=== PATIENT | male | born 1980 | race Caucasian/White ===

== ENCOUNTER 2020-03-29 14:22 | Outpatient (REF) | payer OTHER, SELFPAY | END 2020-03-29 14:23 | disposition home or self-care (01) | LOC: HO.LAB 14:22 | PROVIDERS: Visit Provider Internal Medicine | DX: Z20.822 Contact with and (suspected) exposure to COVID-19 (principal) | CPT/HCPCS: 36415; C9803; U0003 ==

== ENCOUNTER 2021-12-22 11:36 | Emergency (ER) | payer OTHER, SELFPAY ==
--- NOTE | ~2021-12-22 | XR_ITS ---
EXAMINATION: XR CHEST CLINICAL INFORMATION: Foreign body sensation COMPARISON: None TECHNIQUE: 2 views of the chest were obtained. FINDINGS: No significant abnormality is noted involving the heart, lungs, mediastinum, bony thorax or soft tissues. XR/XR chest 2V IMPRESSION: Unremarkable examination. No foreign body detected
[2021-12-22 12:50] VITALS: BP 161/86; PULSE 98; RESP 16; TEMP 36.6; O2SAT 99; BMI 23.7
[2021-12-22 15:57] VITALS: BP 143/91; PULSE 79; RESP 16; TEMP 37.3; O2SAT 97
[2021-12-22] MEDS: Magnesium Hydrox/Alum Hydrox 30 ML ORAL.SUSP PO (19:25)
[2021-12-22] MEDS: Famotidine 20 MG TABLET PO (19:25)
--- NOTE | 2021-12-22 19:50 | ED_ITS ---
HPI - General Adult General Chief complaint: General Medical Stated complaint: Stomach Pain Time Seen by Provider: 12/22/21 18:42 Source: patient Mode of arrival: ambulatory History of Present Illness HPI narrative: 41-year-old male with past medical history of gastritis presenting to the ED complaining feeling like he swallowed something the wrong way/foreign body sensation in epigastrium 4 days ago s/p eating quickly at work. Admits symptoms have resolved, feels better at present. Took OTC medications without relief. Denies chest pain, shortness of breath, nausea, vomiting, recent travel, fever Onset (ago): day(s) Related Data Previous Rx's Medication Instructions Recorded aluminum-mag hydroxide-simethicone 5 ml PO 5XD PRN dyspepsia #30 mL 12/22/21 200 mg-200 mg-20 mg/5 mL oral susp (Maalox Advanced) famotidine 20 mg tablet (Pepcid) 20 mg PO DAILY #14 tabs 12/22/21 Allergies Allergy/AdvReac Type Severity Reaction Status Date / Time No Known Allergies Allergy Verified 12/22/21 12:54 Review of Systems Review of Systems: Constitutional: No Fever, No Chills, No Fatigue, No Malaise ENT/Mouth: No Ear Pain, No Nasal Congestion, No sore throat, No Rhinorrhea, No Swallowing Difficulty Eyes: No Eye Pain, No Swelling, No Redness,No Vision Changes Cardiovascular: No Chest Pain, No SOB, No Edema, No Palpitations Respiratory: No Cough, No Sputum, No Dyspnea Gastrointestinal: No Nausea, No Vomiting, No Diarrhea, No Constipation, + Abdominal pain Genitourinary: No Dysuria, No Hematuria, No Urinary Incontinence/retention Musculoskeletal: No joint pain, No Myalgias, No Joint Swelling Skin: No Skin Lesions, No rash Neuro: No Weakness, No Loss of Consciousness, No Dizziness, No Headache Yes all other systems are reviewed and are negative Constitutional: Constitutional: Reports as per [facility] Past Medical History Attestation statement: The following information was validated with the patient. Social History Social History Advance Directives: No Advance Directives Information Provided: No Physical Exam ED Vital Signs: Vital Signs - 24 hr 12/22/21 12:50 12/22/21 15:57 Temperature 97.9 F 99.2 F Pulse Rate 98 79 Respiratory Rate 16 16 Blood Pressure 161/86 H 143/91 H Pulse Oximetry 99 97 Oxygen Delivery Method Room Air Room Air BMI result Body Mass Index 23.7 Const General: cooperative, healthy appearing and no acute distress Orientation/consciousness: patient oriented x3 Limitations: no limitations HENMT Head: Yes normal to inspection and Yes atraumatic Ears: hearing grossly normal bilaterally General nose exam: Normal external nose present Face and sinus: Yes normal facial exam Throat: Yes posterior oropharynx normal, Yes tonsils normal, Yes uvula midline, No abnormal tonsil, No peritonsillar mass and No uvular edema Eyes General: appearance normal, both eyes and all related structures EOM: EOMs intact bilaterally Neck Neck: Yes normal visual inspection and Yes no meningeal signs Resp Effort & Inspection: normal respiratory effort and no respiratory distress Auscultation: clear to auscultation bilaterally, no crackles, no rales, no rhonchi and no wheezes Cardio Rate: regular rate Heart sounds: S1 normal heart sound present and S2 normal heart sound present GI Inspection: Yes normal to inspection Palpation (GI): Soft to palpation, nontender, no guarding and not rigid General: Yes no CVA tenderness Back/Spine/Pelvis Back: no CVA tenderness Skin Rashes: no rashes Wounds: no wounds Neuro General: patient oriented x3, tone normal and no meningeal signs Gait exam (Neuro): Normal gait present Extrem General: Yes normal to inspection Course Course Course Narrative: XR chest 2V IMPRESSION: Unremarkable examination. No foreign body detected -COVID-19 and influenza negative -patient tolerated p.o. in the ED without difficulty Results discussed with patient including worrisome signs and symptoms and strict return precautions, and when to return to the emergency department. They verbalized understanding and feel safe for discharge at this time. Medical Decision Making MDM Narrative Medical decision making narrative: 41-year-old male with past medical history of gastritis presenting to the ED complaining feeling like he swallowed something the wrong way/foreign body sensation in epigastrium 4 days ago s/p eating quickly at work. On exam vital signs stable, NAD, nontoxic appearing, lungs CTA, abdomen soft/nontender. Concern for ?Food bolus which self resolved vs gastritis vs GERD. R/o aspiration. Plan: CXR, p.o. medications Medical Records Medical records reviewed: Yes I reviewed the patient's medical records. Lab Data Lab results reviewed: Yes I reviewed the patient's lab results. Labs: Lab Results 12/22/21 12/22/21 Range/Units 19:45 19:45 COVID-19 ([facility]E) Negative (Negative) COVID-19 Clin Com See Note Influenza Type A ([facility]REE) Negative (Negative) Influenza Type B ([facility]REE) Negative (Negative) Influenza A & B Note See Note Discharge Plan Discharge Clinical Impression: Sensation of foreign body in esophagus Patient Disposition: Home, Self-Care Additional Instructions: Your chest x-ray is unremarkable. Avoid spicy foods, sweets, caffeine, chocolate, fatty/greasy foods Maalox and Pepcid will help with acid reduction follow up with your doctor and GI if symptoms persist or worsen, you are unable to eat or drink return to the ED Young radiograf?a de t?rax es normal. Evite los alimentos picantes, los dulces, la cafe?na, el chocolate y los alimentos grasos/grasosos. Maalox y Pepcid ayudar?n con la reducci?n de ?cido seguimiento con young m?dico y GI si los s?ntomas persisten o empeoran, no puede comer ni beber volver al servicio de urgencias Prescriptions: New famotidine [Pepcid] 20 mg tablet 20 mg PO DAILY Qty: 14 0RF alum-mag hydroxide-simeth [Maalox Advanced] 200-200-20 mg/5 mL suspension 5 ml PO 5XD PRN (Reason: dyspepsia) Qty: 30 0RF Rx Instructions: administer between meals and at bedtime Referrals: [facility] [place] [facility] [Provider Group] Stand Alone Forms: Work/School Release
[2021-12-22 20:08] LABS: COVID-19 Test Negative (Negative); IDNOW Serial# 16C4AD1C; Influenza A Negative (Negative); Influenza B2 Negative (Negative)
== END 2021-12-22 20:57 | disposition home or self-care (01) ==
PROVIDERS: Physician Assistant; Emergency Provider Emergency Medicine
DX: R10.9 Unspecified abdominal pain (principal); R06.02 Shortness of breath; R09.89 Other specified symptoms and signs involving the circulatory and respiratory systems; Z20.822 Contact with and (suspected) exposure to COVID-19; Z79.899 Other long term (current) drug therapy
CPT/HCPCS: 71046; 87502; 87635; 99282; 99283

== ENCOUNTER 2023-08-01 17:01 | Emergency (ER) | payer SELFPAY ==
[2023-08-01 17:11] VITALS: BP 164/99; PULSE 85; RESP 16; TEMP 36.7; O2SAT 99; BMI 25.3
--- NOTE | 2023-08-01 17:11 | ED.GENADULT ---
HPI - General Adult General Chief complaint: Abdominal Pain Stated complaint: fatigue, nausea, and vomiting Time Seen by Provider: 08/01/23 19:25 Source: patient, RN notes reviewed and old records reviewed Mode of arrival: ambulatory Limitations: no limitations (Patient declined Georgian interpreting services) History of Present Illness ED Provider: Klever LANGE narrative: Presents for evaluation of upper abdominal pain for the last 2 weeks. He states he has not been able to eat much in the last 3 days due to his discomfort and nausea. He feels weak and fatigued He reports he has a history of gastritis but is not currently on any medication for it He denies any fevers or chills. Denies any previous abdominal surgical history He describes his pain as burning Denies excessive alcohol or NSAID use He has no other complaints or concerns at this time Related Data Previous Rx's ?Medication ?Instructions ?Recorded aluminum-mag hydroxide-simethicone 5 ml PO 5XD PRN dyspepsia #30 mL 12/22/21 200 mg-200 mg-20 mg/5 mL oral susp (Maalox Advanced) famotidine 20 mg tablet (Pepcid) 20 mg PO DAILY #14 tabs 12/22/21 calcium carbonate 1,000 1 tab PO Q4-6H PRN indigestion #20 08/01/23 mg-simethicone 60 mg chewable tabs tablet (Maalox Advanced) omeprazole 20 mg capsule,delayed 20 mg PO DAILY #14 caps 08/01/23 release Allergies Allergy/AdvReac Type Severity Reaction Status Date / Time No Known Allergies Allergy Verified 08/01/23 17:14 Review of Systems Constitutional: Constitutional: Denies body ache(s), Reports chills and Denies fever(s) Eyes: Eyes: Denies blurry vision ENT: Reports sore throat Cardiovascular: Cardiovascular: Denies chest pain and Denies dyspnea Respiratory: Respiratory: Denies cough and Denies dyspnea Gastrointestinal: Gastrointestinal: Reports abdominal pain, Denies hematochezia, Denies diarrhea, Denies loose stools, Reports nausea and Denies vomiting Musculoskeletal: Musculoskeletal: Denies back pain Integumentary/Breasts: Skin/Breast: Denies rash PMFSH Social History Social History Advance Directives: No Advance Directives Information Provided: No Physical Exam ED Vital Signs: Vital Signs - 24 hr 08/01/23 17:11 08/01/23 19:51 Temperature 98.0 F 97.6 F Pulse Rate 85 71 Respiratory Rate 16 16 Blood Pressure 164/99 H 136/96 H Pulse Oximetry 99 97 Oxygen Delivery Method Room Air Room Air BMI result Body Mass Index 25.3 Const General: healthy appearing, comfortable, no acute distress, alert and awake Nutritional Appearance: well nourished Orientation/consciousness: patient oriented x3 HENMT Head: Yes normocephalic and Yes atraumatic Throat: Yes posterior oropharynx normal Eyes Eyelids: Yes eyelids normal Conjunctivae: conjunctivae normal Sclerae: sclerae normal Corneas: corneas normal Pupils: Equal, round and reactive pupils present EOM: EOMs intact bilaterally Neck Neck: Yes full ROM Resp Effort & Inspection: normal respiratory effort, able to speak in complete sentences and not labored GI Inspection: No distended Palpation (GI): Soft to palpation, not firm, Tenderness to palpation present (GI) (Minimal tenderness in the epigastric region. ) in the epigastrum and in the LUQ; not in the LLQ, not in the RLQ, not in the RUQ and not at McBurney's point, no guarding and not rigid Skin General skin exam: elasticity normal Neuro General: patient oriented x3 Cranial nerves: Yes Equal, round and reactive pupils present and Yes Bilaterally intact EOM present Cognition (Neuro): normal cognition Extrem Other: Moving all extremities well without any obvious deformities Course Course Course Narrative: This is an RME done by ELLY Enriquez: Additional HPI, ROS, PE not included below will be deferred to primary provider.42 year old male with hx of gastritis presents with abdominal pain in the epigastric region as well as nausea and vomiting x 1 week. No recent sick contacts. Denies fever, chills ,diarrhea, or constipation. Appearance: Alert.? Oriented X3.? No acute cardiopulmonary distress distress.? Head: Normocephalic, atraumatic, no step-offs or deformities CVS: Pulses normal.? Respiratory: No respiratory distress.? Abdomen: Soft and tender to palpation in epigastric area. Skin: ? Normal skin color. Neuro: Oriented X 3.? No motor deficit.? No sensory deficit. Medications Administered Discontinued Medications Generic Name Dose Route Start Last Admin Trade Name Freq PRN Reason Stop Dose Admin Al Hydroxide/Mg Hydroxide 30 ml 08/01/23 19:44 08/01/23 19:54 Magnesium Hydrox/Alum Hydrox 30 Ml Oral.Susp PO 08/01/23 19:45 30 ml ONCE ONE Administration Lidocaine HCl 15 ml 08/01/23 19:44 08/01/23 19:54 Lidocaine Hcl Viscous 2 % 15 Ml Solution MUCOUS MEM 08/01/23 19:45 15 ml ONCE ONE Administration Ondansetron HCl 4 mg 08/01/23 19:44 08/01/23 19:54 Ondansetron Odt 4 Mg Tab.Rapdis TRANSLINGU 08/01/23 19:45 4 mg ONCE ONE Administration Medical Decision Making Medical Decision Making MDM Narrative: 42-year-old male history of gastritis presents for evaluation of burning upper abdominal pain for last 2 weeks. He has not on medications for his gastritis. His vitals are stable, his abdominal exam is quite reassuring. His labs have no concerning abnormalities. He has no white count, no anemia. No electrolyte abnormalities. We will treat with a GI cocktail. He complains of a sore throat which may be related to his gastritis. We will get a strep throat swab as well. Differential Diagnosis Differential Diagnoses: The differential diagnosis associated with the presentation includes GERD Gastritis Abdominal pain Pharyngitis Lab Data [facility] Lab Attestation statement: I reviewed the patient's lab results. No leukocytosis or anemia. Normal platelet count. No electrolyte abnormalities. Normal renal function 08/01/23 19:53 08/01/23 19:53 Labs: Lab Results 08/01/23 Range/Units 19:53 WBC 5.9 (4.8-10.8) X10*3/uL RBC 5.84 H (4.60-5.80) X10*6/uL Hgb 15.7 (14.0-18.0) g/dl Hct 47.8 (42.0-52.0) % MCV 81.8 (80.0-98.0) fL MCH 26.9 L (27.0-33.0) pg MCHC 32.8 (31.0-36.0) g/dl RDW 14.1 (11.0-16.0) % Plt Count 212 (160-400) X10*3/uL MPV 11.3 (9.4-12.4) fL Immature Gran % (Auto) 0.2 (0.0-0.4) % Neut % (Auto) 49.7 (45-73) % Lymph % (Auto) 34.0 (20-40) % [place] % (Auto) 14.1 H (2-11) % Eos % (Auto) 1.3 (0-4) % Baso % (Auto) 0.7 (0-2) % Lymph # (Auto) 2.0 (1.2-4.9) X10*3/uL [place] # (Auto) 0.8 (0.1-1.2) X10*3/uL Eos # (Auto) 0.1 (0.0-0.4) X10*3/uL Baso # (Auto) 0.0 (0.0-0.2) X10*3/uL Abs Immat Gran (auto) 0.01 (0.00-0.03) X10*3/uL Absolute Neuts (auto) 3.0 (2.0-8.3) x10*3/uL Absolute Nucleated RBC 0.000 (0.0-0.012) X10*3/uL Nucleated RBC % (auto) 0.0 (0.0-0.2) /100WBC Sodium 140 (135-145) mmol/L Potassium 4.4 (3.3-5.1) mmol/L Chloride 104 (96-108) mmol/L Carbon Dioxide 25 (22-29) mmol/L Anion Gap 15 (12-20) BUN 10 (9-16) mg/dL Creatinine 1.00 (0.5-1.4) mg/dL Estim Creat Clear Calc 113.8 Estimated GFR > 60 Random Glucose 100 (60-115) mg/dL Calcium 9.2 (8.4-10.2) mg/dL Total Bilirubin 0.5 (0.0-1.0) mg/dL AST 25 (5-37) U/L ALT 30 (0-40) U/L Alkaline Phosphatase 70 (39-117) U/L Total Protein 7.5 (6.5-8.0) g/dL Albumin 4.2 (3.5-5.0) g/dL Lipase 27 (8-78) U/L Discharge Plan Discharge Clinical Impression: Abdominal pain Patient Disposition: Home, Self-Care Instructions: Gastritis (ED) Additional Instructions: Take omeprazole daily for the next 2 weeks. You may use Maalox as needed for breakthrough abdominal pain Drink lots of fluids. Follow-up with your primary doctor Return for new or worsening symptoms Prescriptions: New Maalox Advanced 1,000-60 mg tablet,chewable 1 tab PO Q4-6H PRN (Reason: indigestion) Qty: 20 0RF omeprazole 20 mg capsule,delayed release(DR/EC) 20 mg PO DAILY Qty: 14 0RF No Action famotidine [Pepcid] 20 mg tablet 20 mg PO DAILY Qty: 14 0RF alum-mag hydroxide-simeth [Maalox Advanced] 200-200-20 mg/5 mL suspension 5 ml PO 5XD PRN (Reason: dyspepsia) Qty: 30 0RF Rx Instructions: administer between meals and at bedtime Stand Alone Forms: Work/School Release Print Language: Georgian
[2023-08-01 19:51] VITALS: BP 136/96; PULSE 71; RESP 16; TEMP 36.4; O2SAT 97
[2023-08-01] MEDS: Lidocaine HCl Viscous 2 % 15 ML SOLUTION MUCOUS MEM (19:54)
[2023-08-01] MEDS: Magnesium Hydrox/Alum Hydrox 30 ML ORAL.SUSP PO (19:54)
[2023-08-01] MEDS: Ondansetron ODT 4 MG TAB.RAPDIS TRANSLINGU (19:54)
[2023-08-01 19:58] LABS: MANUAL DIFF FLAG NO
--- NOTE | 2023-08-01 19:58 | PC.NURSE ---
assumed care [id number], pt c/o upper abd pain 06/12. medicated per MAR
[2023-08-01 20:00] LABS: Basophils Percent Auto 0.7 % (0-2); Eosinophils Absolute Auto 0.1 X10*3/uL (0.0-0.4); Eosinophils Percent Auto 1.3 % (0-4); Hematocrit 47.8 % (42.0-52.0); Hemoglobin 15.7 g/dl (14.0-18.0); Imm Gran Abs Auto 0.01 X10*3/uL (0.00-0.03); Imm Gran Pct Auto 0.2 % (0.0-0.4); Mean Corpuscular HGB Conc 32.8 g/dl (31.0-36.0); Mean Corpuscular Hemoglobin 26.9 pg (27.0-33.0); Mean Corpuscular Volume 81.8 fL (80.0-98.0); Mean Platelet Volume 11.3 fL (9.4-12.4); Monocytes Absolute Auto 0.8 X10*3/uL (0.1-1.2); Monocytes Percent Auto 14.1 % (2-11); Neutrophils Percent Auto 49.7 % (45-73); Platelet Count 212 X10*3/uL (160-400); Red Blood Count 5.84 X10*6/uL (4.60-5.80); Red Cell Distribution Width 14.1 % (11.0-16.0); White Blood Count 5.9 X10*3/uL (4.8-10.8)
--- NOTE | 2023-08-01 20:15 | PC.NURSE ---
pt reassessed for pain, pt reported 0/10
[2023-08-01 20:16] LABS: Alanine Aminotransferase 30 U/L (0-40); Albumin Level 4.2 g/dL (3.5-5.0); Alkaline Phosphatase 70 U/L (39-117); Anion Gap 15 (12-20); Aspartate Amino Transferase 25 U/L (5-37); Bilirubin Total 0.5 mg/dL (0.0-1.0); Blood Urea Nitrogen 10 mg/dL (9-16); Calcium 9.2 mg/dL (8.4-10.2); Carbon Dioxide 25 mmol/L (22-29); Chloride 104 mmol/L (96-108); Creatinine Clr Calc Pharmacy 113.8; Estimated Glomerular Filt Rate > 60; Glucose Random 100 mg/dL (60-115); Lipase 27 U/L (8-78); Potassium 4.4 mmol/L (3.3-5.1); Sodium 140 mmol/L (135-145); Total Protein 7.5 g/dL (6.5-8.0)
[2023-08-01 21:03] LABS: IDNOW Serial# 58CA691E; Strep A Nucleic Acid Negative (Negative)
[2023-08-01 21:28] LABS: Influenza A PCR NEGATIVE (Negative); Influenza B PCR NEGATIVE (Negative); Resp Syncy Virus RNA Qual PCR NEGATIVE (Negative); SARS COV2 PCR INHOUSE NEGATIVE (Negative)
[2023-08-01 21:36] VITALS: BP 144/97; PULSE 62; RESP 16; TEMP 37.1; O2SAT 97
[2023-08-01 21:42] VITALS: BP 144/97; PULSE 62; RESP 16; TEMP 37.1; O2SAT 97
== END 2023-08-01 21:43 | disposition home or self-care (01) ==
PROVIDERS: Physician Assistant; Emergency Provider Emergency Medicine
DX: R10.10 Upper abdominal pain, unspecified (principal); J02.9 Acute pharyngitis, unspecified; R11.2 Nausea with vomiting, unspecified; Z03.818 Encounter for observation for suspected exposure to other biological agents ruled out
CPT/HCPCS: 0241U; 80053; 83690; 85025; 87651; 99283

== ENCOUNTER 2024-06-10 13:32 | Outpatient (AMB) | payer OTHER, SELFPAY ==
[2024-06-10 13:54] VITALS: BP 138/96; PULSE 71; RESP 16; O2SAT 98; BMI 25.4
--- NOTE | 2024-06-10 13:54 | A.OFFPC_ITS ---
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 Patient reports that he had no previous primary care physician. Medical records have not been requested and have not been received. Genetics Teacher Required: Yes Genetics Teacher Language: Licensed Professional Counselor Name: Shelly [id number] Accompanied by: Mother Allergies Penicillins Allergy (Severe, Verified 06/15/24 22:11) Anaphylaxis Tobacco use date assessed: 06/10/24 Dental Screening Dental Screen Date: 06/10/24 Did you have a dental visit in the last 12 months?: No Did you have a dental problem in the last 6 months where you did not have access to dental care?: No Was dental information given to patient?: No HPI WATER SYSTEMS ENGINEER-PE HPI Details Previous PCP: no PCP- He was living [place]; living there for 7 years Last visit: Last PE: Specialist: no OBGYN:n/a Past medical history: constipation, high blood pressure Medications: omeprazole Family HX: mother heart disease, thyroid nodules, high cholesterol, Problem: Reports going to the ER about 7-8 months ago. Reports that sometime, he is having pain in the stomach to radiates into his back Reports constipation, sometimes not going for up to 5 days. Reports that he has not gone for 3 days today Intermittently abdominal in the RUQ, radiating to his back reports heart burn always-calms since he is taking the omeprazole reports that it is more like gassy experience with certain foods reports that he was told that he has fatty liver at [facility] reports that they told him that his issue is mainly constipation He denies any blood in the urine or stool [facility] Medical History (Updated 06/15/24 @ 22:34 by TAMI Albarado) Fatty liver Heart burn High blood pressure Constipation Surgical History No pertinent past surgical history Family History (Updated 06/15/24 @ 22:34 by TAMI Albarado) Daughter No problems noted. Daughter No problems noted. Mother Heart disease Hypertension Thyroid nodule Father Hypertension Maternal Grandmother Stroke Social History Household Members: Family Housing: Apartment Alcohol intake: former Patient Tobacco Use Status: Never used Tobacco e-Cigarette/Vaping Use: Never Used service: No Current occupational status: employed Current occupation: Other Sports Official Cognitive needs: No Hearing needs: No Vision needs: No Questionnaire PHQ-9 Over the last 2 weeks, how often have you been bothered by any of the following problems? 1. Little interest or pleasure in doing things: several days 2. Feeling down, depressed, or hopeless: several days 3. Trouble falling or staying asleep, or sleeping too much: several days 4. Feeling tired or having little energy: several days 5. Poor appetite or overeating: not at all 6. Feeling bad about yourself - or that you are a failure or have let yourself or your family down: not at all 7. Trouble concentrating on things, such as reading the newspaper or watching television: not at all 8. Moving or speaking so slowly that other people could have noticed. Or the opposite - being so fidgety or restless that you have been moving around a lot more than usual: not at all 9. Thoughts that you would be better off or of hurting yourself in some way: not at all Total score: 4 Depression Screening Interpretation: Positive Depression Screening Done: Yes 53463 - PHQ-9 Billing: Yes Source: Developed by Drs. Master Olson, Sherry Irwin, Chris Colón and colleagues, with an educational paula from [employer] Thrive Questionnaire Date Thrive assessed: 06/10/24 I am a: Patient What is your living situation today?: I have a steady place to live Within the past 12 months, did the food you bought not last and you didn't have the money to get more?: Never true Within the past 12 months, did you worry whether your food would run out before you got money to buy more?: Never true Do you have trouble paying for medicines?: I choose not to answer this question Do you have trouble getting transportation to medical appointments?: No Do you have trouble paying your heating and electricity bill?: No Do you have trouble taking care of your child, family member or friend?: No Do you have trouble with day-to-day activities such as bathing, preparing meals, shopping, managing finances, etc.?: No Are you currently unemployed and looking for a job?: No Are you interested in more education?: Yes Please select the resources that you would like help with: None Currently or been in a relationship where the following occur: No concerns reported THRIVE Score: 0 AUDIT C Alcohol Use Questionnaire (AUDIT-C) 1. How often do you have a drink containing alcohol?: Never 3. How often do you have six or more drinks on one occasion?: Never Total Score: 0 Score Reviewed/Action Taken: Yes RICARDO-7 AMB Questionnaire RICARDO-7 Date RICARDO - 7 assessed: 06/10/24 Feeling nervous, anxious, or on edge: 1 = Several days Not being able to stop or control worryin = Several days Worrying too much about different things: 0 = Not at all Trouble relaxin = Not at all Being so restless that it is hard to sit still: 0 = Not at all Becoming easily annoyed or irritable: 2 = More than half the days Feeling afraid as if something awful might happen: 0 = Not at all Total RICARDO-7 score (0-4 normal; 5-9 mild; 10-14 moderate; 15-21 severe): 4 Source: Developed by Drs. Master Olson, Sherry Irwin, Chris Colón and colleagues, with an educational paula from [employer] RICARDO-7 Assessment Billing RICARDO-7 Assessment Tool: RICARDO-7 Assessment 53789 Review of Systems ENT Denies sore throat Card Denies chest pain, Denies leg edema and Denies lightheadedness Resp Denies cough and Denies hemoptysis GI Reports abdominal pain (Radiates to his back), Denies melena, Reports constipation, Reports excessive flatus, Reports heartburn, Denies diarrhea and Denies vomiting Denies dysuria, Denies urinary frequency and Denies urinary urgency Physical exam (Primary Care) Vital Signs: Last Vital Signs Pulse 71 06/10/24 13:54 Resp 16 06/10/24 13:54 BP 138/96 H 06/10/24 13:54 Pulse Ox 98 06/10/24 13:54 Oxygen Delivery Method Room Air 06/10/24 13:54 BMI result Body Mass Index 25.4 Tobacco/Smoking Status: Tobacco use Status Tobacco use date assessed 06/10/24 06/10/24 14:19 Patient Tobacco Use Status Never used Tobacco 06/10/24 14:07 e-Cigarette/Vaping Use Never Used 06/10/24 14:07 PHQ-9: PHQ-9 Score PHQ-9: Total score 4 06/10/24 14:18 Depression Screening Interpretation: Positive Thrive Assessment: Date of Thrive Assessment Date Thrive assessed 06/10/24 06/10/24 14:10 Currently or been in a relationship where the following occur: No concerns reported Const General: healthy appearing, no acute distress, alert and awake Nutritional Appearance: well nourished HENMT Ears: external ears normal General nose exam: Normal nares present Eyes Conjunctivae: conjunctivae normal Sclerae: sclerae normal Neck Neck: Yes no lymphadenopathy and Yes no JVD Thyroid: Thyroid normal Carotids: no bruits Resp Effort & Inspection: normal respiratory effort and not tachypneic Auscultation: no crackles, no rales, no rhonchi and no wheezes Cardio Rate: regular rate Rhythm: regular rhythm Heart sounds: no murmurs and normal S1 and S2 GI Palpation (GI): Soft to palpation, Tenderness to palpation present (GI) in the RUQ, no hepatomegaly and no splenomegaly Auscultation: normal bowel sounds Coding Level of Care Code New Pt Level 4 (07633) Diagnoses Constipation, unspecified constipation type K59.00 Constipation type: unspecified constipation type Hypertension, unspecified type I10 Hypertension type: unspecified Heart burn R12 Additional Codes RICARDO-7 Assessment Billing - RICARDO-7 Assessment Tool: RICARDO-7 Assessment 38612 ([id number]) PHQ-9 - 11361 - PHQ-9 Billing: Yes ([id number]) Time Spent (min) 38 Assessment & Plan Assessment & Plan (1) Constipation: Code(s): K59.00 - Constipation, unspecified Category: Medical Qualifiers: Constipation type: unspecified constipation type Qualified Code(s): K59.00 - Constipation, unspecified Plan: Colace 100 mg b.i.d., MiraLax 17 g daily started. Increase fluids intake. Discussed with the patient to contact office if he is still unable to a bowel movement. Go to emergency room if abdominal pain increases (2) High blood pressure: Code(s): I10 - Essential (primary) hypertension Category: Medical Qualifiers: Hypertension type: unspecified Qualified Code(s): I10 - Essential (primary) hypertension Plan: Start low-sodium diet Amlodipine 5 mg daily started. Monitor blood pressure and reports abnormal findings (3) Heart burn: Code(s): R12 - Heartburn Category: Medical Plan: Patient was on omeprazole 20 mg daily. Reports that he was still having frequent heartburn. However, he reports that he had some relief since starting the omeprazole. We will increase the omeprazole to 40 mg daily. Do not eat meals or drink carbonated beverages within 3 hr of bedtime Decrease the amount of fried, fatty, and spicy foods to decrease gastric acid production Raise the head of the bed using 4 to 6-inch blocks, especially if nocturnal symptoms are present Lose weight if indicated; avoid tight-fitting clothing, especially around the waist Avoid foods that relax the Lower esophageal sphincter (chocolate, peppermint, high-fat foods etc.,) Orders: Orders Comprehensive [facility]. Panel Fast 06/10/24 Z00.00 - Encounter for general adult medical examination without abnormal findings TSH reflex Free T4 06/10/24 Z00.00 - Encounter for general adult medical examination without abnormal findings Lipid Panel 06/10/24 Z00.00 - Encounter for general adult medical examination without abnormal findings Complete Blood Count Auto Diff 06/10/24 Z00.00 - Encounter for general adult medical examination without abnormal findings Glucose Fasting 06/10/24 Z00.00 - Encounter for general adult medical examination without abnormal findings Vitamin D 25-OH Total 06/10/24 Z00.00 - Encounter for general adult medical examination without abnormal findings UA CC w/rflx Micro + Cult 06/10/24 Z00.00 - Encounter for general adult medical examination without abnormal findings US abdomen complete 06/10/24 K59.00 - Constipation, unspecified, K76.0 - Fatty (change of) liver, not elsewhere classified, R10.11 - Right upper quadrant pain, R10.9 - Unspecified abdominal pain Medications: New amlodipine 5 mg PO DAILY 30 tabs 2RF I10 - Essential (primary) hypertension polyethylene glycol 3350 (Miralax) 17 grams PO DAILY 238 grams 2RF K59.00 - Constipation, unspecified omeprazole 40 mg PO DAILY 30 caps 2RF R12 - Heartburn docusate sodium (Colace) 100 mg PO BID 60 caps 2RF Discontinued famotidine (Pepcid) Discontinued Reason: Patient no longer taking 20 mg PO DAILY 14 tabs 0RF alum-mag hydroxide-simeth 200-200-20 mg/5 mL (Maalox Advanced) administer between meals and at bedtime Discontinued Reason: Patient no longer taking 5 mL PO 5XD PRN 30 mL 0RF dyspepsia omeprazole Discontinued Reason: Duplicate 20 mg PO DAILY 14 caps 0RF calcium carbonate-simethicone 1,000-60 mg (Maalox Advanced) Discontinued Reason: Patient no longer taking 1 tab PO Q4-6H PRN 20 tabs 0RF indigestion
--- OUTSIDE RECORDS SUMMARY | 2024-06-10 16:30 | XMS_ITS | Clinical Summary ---
Author Organization [facility] Address [address] [place] [address] Phone Care Team Providers Care Shactor Helper Name Role Phone Physician, No Pcp Primary Care Provider Unavaila ble Allergies Active Allergy Reactions Criticality Noted Date Comments Penicillins Unknown 01/17/2024 Medications omeprazole (PriLOSEC) [address] capsule Take 1 capsule (20 mg total) by mouth 1 (one) time each day. 08/01/2023 Active Social History Tobacco Use Types Packs/Day Years Used Date Smoking Tobacco: Never Assessed Sex and Gender Information Value Date Recorded Sex Assigned at Not on file Legal Sex Male 6:47 PM EST Gender Identity Not on file Sexual Orientation Not on file Obstetrics History Last Filed Vital Signs Vital Sign Reading Time Taken Comments Blood Pressure 124/76 01/18/2024 5:49 AM EST Pulse 70 01/18/2024 5:49 AM EST Temperature 36.7 ??C (98.1 ??F) 01/18/2024 5:49 AM ES T Respiratory Rate 18 01/18/2024 5:49 AM EST Oxygen Saturation 99% 01/18/2024 5:49 AM EST Inhaled Oxygen Concentration - - Weight 88.7 kg (195 lb 8 oz) 01/17/2024 4:46 PM EST Height 190.5 cm (6' 3 ) 01/17/2024 4:46 PM EST Body Mass Index 24.44 01/17/2024 4:46 PM EST Plan of Treatment Health Maintenance Due Date Last Done Comments DTaP,Tdap,and Td Vaccines (1 - Tdap) 09/15/1998 Hepatitis B Vaccines (1 of 3 - 19+ 3-dose series) 09/15/1998 Pneumococcal Vaccine: Pediatrics (0 to 5 Years) and At-Risk Patients (6 to 64 Years) (1 of 2 - PCV) 09/15/1998 Cholesterol Screening (Lipid Panel) 04/03/2023 Depression Screening 04/03/2023 HIV Screening 04/03/2023 Hepatitis C Screening 04/03/2023 Social Influencers of Health Screening 04/03/2023 COVID-19 Vaccine ( - 2023-2 5 season) 2023 08/18/2020, 07/28/2020 Influenza Vaccine (#1) 2023 HIB Vaccines Aged Out No longer eligi ble based on patient's age to complete this topic HPV Vaccines Aged Out No longer eligi ble based on patient's age to complete this topic Hepatitis A Vaccines Aged Out No long er eligible based on patient's age to complete this topic IPV Vaccines Aged Out No longer eligi ble based on patient's age to complete this topic MMR Vaccines Aged Out No longer eligi ble based on patient's age to complete this topic Meningococcal ACWY Vaccine Aged Out N o longer eligible based on patient's age to complete this topic Meningococcal B Vaccine Aged Out No l onger eligible based on patient's age to complete this topic RSV Immunization Patients Under 20 months Aged Out No longer eligible b ased on patient's age to complete this topic Varicella Vaccines Aged Out No longer eligible based on patient's age to complete this topic Care Teams Shactor Helper Relationship Specialty Start Date End Date Physician, No Pcp PCP - General 01/17/24
--- OUTSIDE RECORDS SUMMARY | 2024-06-10 16:30 | XMS_ITS | Clinical Summary ---
Author Organization [facility] Address [address] [address] [place] [address] Care Team Providers Care Rental Sales Associate Name Role Phone Unavailable Primary Care Provider Unavailabl e Social History Tobacco Use Types Packs/Day Years Used Date Smoking Tobacco: Never Assessed Sex and Gender Information Value Date Recorded Sex Assigned at Not on file Legal Sex Male 12:34 PM EST Gender Identity Not on file Sexual Orientation Not on file Plan of Treatment Health Maintenance Due Date Last Done Comments Depression Screening 1979 HIV Screening 1979 Lipid Panel 1979 SDOH Screening 1979 Alcohol/Substance Use Screening 1991 Tobacco Screening 1991 Family Planning (PISQ) 09/15/1994 Hepatitis C Screening 09/15/1997 DTaP/Tdap/Td Vaccines (1 - Tdap) 09/15/1998 Hepatitis A Vaccines (1 of 2 - Risk 2-dose series) 09/15/1998 Hepatitis B Vaccines (1 of 3 - 19+ 3-dose series) 09/15/1998 COVID-19 Vaccine ( - 2023-2 5 season) 2023 Influenza Vaccine (#1) 2023 Zoster Vaccines (1 of 2) 09/15/2029 RSV Patients and Pa tients Aged 60 years or older (1 - 1-dose 75+ series) 09/15/2054 HIB Vaccines Aged Out No longer eligi ble based on patient's age to complete this topic HPV Vaccines Aged Out No longer eligi ble based on patient's age to complete this topic IPV Vaccines Aged Out No longer eligi ble based on patient's age to complete this topic Meningococcal Vaccine Aged Out No yelitza patricio eligible based on patient's age to complete this topic Pneumococcal Vaccine: Pediat rics (0 to 5 Years) and At-Risk Patients (6 to 49) Years) Aged Out No longer eligible b ased on patient's age to complete this topic RSV under 20 months Aged Out No longe r eligible based on patient's age to complete this topic Rotavirus Vaccines Aged Out No longer eligible based on patient's age to complete this topic Insurance [facility]
== END 2024-06-10 14:54 | disposition home or self-care (01) ==
DX: K59.00 Constipation, unspecified (principal); I10 Essential (primary) hypertension; R12 Heartburn

== ENCOUNTER → 2024-06-10 13:32 | Outpatient (BNVA) | payer OTHER, SELFPAY | DX: K59.00 Constipation, unspecified (principal); I10 Essential (primary) hypertension; R12 Heartburn; K76.0 Fatty (change of) liver, not elsewhere classified; R10.11 Right upper quadrant pain | CPT/HCPCS: 96127; 99202 ==

== ENCOUNTER 2024-07-14 10:12 | Outpatient (REF) | payer OTHER, SELFPAY ==
--- NOTE | ~2024-07-14 | US_ITS ---
CLINICAL HISTORY: K59.00 - Constipation, unspecified US abdomen complete Comparison: None Findings: The visualized pancreas is normal. The aorta and inferior vena cava are normal caliber. The liver is normal in size and echotexture. There is mild intrahepatic biliary ductal dilatation. The common duct is 3 mm in diameter. The gallbladder is normal. There is no sonographic Jarrell sign. The main portal vein is antegrade. The right kidney is 10.5 cm in length. The left kidney is 11.5 cm in length. The spleen is normal. No ascites. IMPRESSION: 1. Mild intrahepatic biliary ductal dilatation. 2. Otherwise negative examination. This document has been electronically signed by: Dante Walter MD on 07/14/2024 17:24:53
[2024-07-14 10:28] LABS: MANUAL DIFF FLAG NO
--- OUTSIDE RECORDS SUMMARY | 2024-07-14 10:44 | XMS_ITS | Clinical Summary ---
Author Organization [employer] Address [address] [facility] [address] [place] [address] Care Team Providers Care Microfiche Camera Operator Name Role Phone Unavailable Primary Care Provider [...] patient's age to complete this topic Insurance [facility]
--- OUTSIDE RECORDS SUMMARY | 2024-07-14 10:44 | XMS_ITS | Clinical Summary ---
Author Organization [facility] Address [address] [place] [address] Phone Care Team Providers Care Data Engineer Name Role Phone Physician, No Pcp Primary [...] 5 season) 2023 08/18/2020, 07/28/2020 Influenza Vaccine (Season Ended) 2024 HIB Vaccines Aged Out No longer eligi [...] age to complete this topic Care Teams Data Engineer Relationship Specialty Start Date End Date Physician, No Pcp PCP - General 01/17/24
[2024-07-14 11:18] LABS: Appearance Urine Clear; Color Urine Yellow; Glucose Urine UA Negative (Negative); Leukocyte Esterase Urine Small (1+) (Negative); Nitrite Urine Negative (Negative); UMIC TRIGGER UACC YES; Urine Blood Negative (Negative); Urine Ketones Negative (Negative); Urine Protein Negative (Neg-Trace)
[2024-07-14 11:26] LABS: Basophils Percent Auto 0.6 % (0-2); Eosinophils Absolute Auto 0.1 X10*3/uL (0.0-0.4); Hematocrit 48.7 % (42.0-52.0); Hemoglobin 15.7 g/dl (14.0-18.0); Imm Gran Abs Auto 0.01 X10*3/uL (0.00-0.03); Imm Gran Pct Auto 0.2 % (0.0-0.4); Lymphocytes Absolute Auto 2.2 X10*3/uL (1.2-4.9); Lymphocytes Percent Auto 34.1 % (20-40); Mean Corpuscular HGB Conc 32.2 g/dl (31.0-36.0); Mean Corpuscular Volume 80.5 fL (80.0-98.0); Mean Platelet Volume 11.8 fL (9.4-12.4); Monocytes Absolute Auto 0.6 X10*3/uL (0.1-1.2); Monocytes Percent Auto 9.4 % (2-11); Neutrophils Absolute Auto 3.4 x10*3/uL (2.0-8.3); Neutrophils Percent Auto 53.7 % (45-73); Platelet Count 249 X10*3/uL (160-400); Red Blood Count 6.05 X10*6/uL (4.60-5.80); Red Cell Distribution Width 14.3 % (11.0-16.0); White Blood Count 6.4 X10*3/uL (4.8-10.8)
[2024-07-14 11:27] LABS: Bacteria Urine None Seen (None Seen); Hyaline Casts Urine 0-2 /LPF (0-2); RBC Urine 0-2 /HPF (0-2); Squamous Epithelial Cell Urine 0-2 /HPF (0-2); UACC Culture Trigger YES; WBC Urine 0-5 /HPF (0-5)
[2024-07-14 12:05] LABS: Alanine Aminotransferase 59 U/L (0-40); Albumin Level 4.4 g/dL (3.5-5.0); Anion Gap 13 (12-20); Aspartate Amino Transferase 40 U/L (5-37); Bilirubin Total 0.6 mg/dL (0.0-1.0); Blood Urea Nitrogen 18 mg/dL (9-16); Calcium 9.7 mg/dL (8.4-10.2); Carbon Dioxide 24 mmol/L (22-29); Chloride 104 mmol/L (96-108); Cholesterol 231 mg/dL (<200); Estimated Glomerular Filt Rate > 60; Glucose Fasting 96 mg/dL (60-99); HDL Cholesterol 41 mg/dL (>40); LDL Cholesterol Calculated 147 mg/dL (<100); Potassium 3.9 mmol/L (3.3-5.1); Sodium 137 mmol/L (135-145); Total Protein 7.6 g/dL (6.5-8.0); Triglycerides 215 mg/dL (<150)
[2024-07-14 12:14] LABS: TSH reflex Free T4 0.97 uIU/mL (0.32-4.0); Vitamin D 25-OH Total 19.2 ng/mL (>30)
[2024-07-14 12:24] LABS: Alkaline Phosphatase 69 U/L (39-117)
== END 2024-07-14 10:13 | disposition home or self-care (01) ==
LOC: HO.US 10:12
DX: R10.11 Right upper quadrant pain (principal); R10.9 Unspecified abdominal pain; K76.0 Fatty (change of) liver, not elsewhere classified; K59.00 Constipation, unspecified; Z00.00 Encounter for general adult medical examination without abnormal findings
CPT/HCPCS: 36415; 76700; 80053; 80061; 81001; 82306; 84443; 85025; 87086

== ENCOUNTER → 2024-07-14 16:38 | Outpatient (BNV) | payer OTHER, SELFPAY | PROVIDERS: Visit Provider Radiology Diagnostic Radiology | DX: K59.00 Constipation, unspecified (principal) | CPT/HCPCS: 76700 ==

== ENCOUNTER 2024-07-31 10:29 | Outpatient (AMB) | payer OTHER, SELFPAY ==
--- NOTE | 2024-07-31 10:31 | A.OFFPC_ITS ---
Vital Signs 07/31/24 10:32 Height 6 ft Weight 191 lb BMI 25.9 BP 142/92 H Blood Pressure Location Lt brachial Position Sitting Pulse 108 H Pulse Source Pulse Oximeter Pulse Oximetry (%) 98 Oxygen Delivery Method Room Air Intake Visit Reasons: BP follow up Shredding Machine Tender Required: Yes Shredding Machine Tender Name: [id number]/Rex Allergies Penicillins Allergy (Severe, Verified 07/31/24 10:39) Anaphylaxis Medication List - Last Reconciled 07/31/24 by TAMI Albarado amlodipine 5 mg PO DAILY docusate sodium (Colace) 100 mg PO BID omeprazole 40 mg PO DAILY polyethylene glycol 3350 (Miralax) 17 grams PO DAILY Tobacco use date assessed: 06/10/24 Dental Screening Dental Screen Date: 06/10/24 HPI BP follow up HPI Details Patient is a 43-year-old male presenting for blood pressure evaluation Was started on amlodipine 5 mg daily on his last visit Presenting with blood pressure slightly higher than his BP at his last visit Patient reports that he has not been taking his blood pressure medication Recent labs and imaging reviewed with the patient-abdominal ultrasound shows mild dilatation and biliary duct, otherwise unremarkable Patient has been complaining about ongoing abdominal pain Upon further assessment, the patient was noted squeezing his right rib area proximal to his mid back reason Explained to the patient that his pain that he is feeling most likely is muscular He reports working out and lifting weights frequently The patient cholesterol and liver enzymes are elevated-patient reports that 1 of his trips to the [facility] he was told that he had a fatty liver Patient also endorsed he then fried foods and pork frequently He also spoke about drinking heavily in the past but has since drinks occasionally and mostly on the weekends He reports intermittent constipation, reports that he goes almost every other day but has waited 3 days before going in the past. Reports that his heartburn has been much better/calm since starting omeprazole He reports that he experiences excessive gas with certain foods Denies blood or mucus in his stool Patient denies chest pain, SOB, heart palpitation Denies any urinary symptoms . [facility] Medical History (Updated 07/31/24 @ 11:08 by TAMI Albarado) Fatty liver Heart burn High blood pressure Constipation Surgical History No pertinent past surgical history Family History (Updated 06/15/24 @ 22:34 by TAMI Albarado) Daughter No problems noted. Daughter No problems noted. Mother Heart disease Hypertension Thyroid nodule Father Hypertension Maternal Grandmother Stroke Social History Household Members: Family Housing: Apartment Alcohol intake: former Patient Tobacco Use Status: Never used Tobacco Tobacco use type: Cigarette e-Cigarette/Vaping Use: Never Used Second Hand Smoke Exposure: No service: No Current occupational status: employed Current occupation: Administrative Assistant Coordinator Cognitive needs: No Hearing needs: No Vision needs: No Questionnaire PHQ-9 Over the last 2 weeks, how often have you been bothered by any of the following problems? 1. Little interest or pleasure in doing things: several days 2. Feeling down, depressed, or hopeless: several days 3. Trouble falling or staying asleep, or sleeping too much: several days 4. Feeling tired or having little energy: several days 5. Poor appetite or overeating: not at all 6. Feeling bad about yourself - or that you are a failure or have let yourself or your family down: not at all 7. Trouble concentrating on things, such as reading the newspaper or watching television: not at all 8. Moving or speaking so slowly that other people could have noticed. Or the opposite - being so fidgety or restless that you have been moving around a lot more than usual: not at all 9. Thoughts that you would be better off or of hurting yourself in some way: not at all Total score: 4 Depression Screening Interpretation: Positive Depression Screening Done: Yes Source: Developed by Drs. Master Olson, Sherry Irwin, Chris Colón and colleagues, with an educational paula from [employer]. Thrive Questionnaire Date Thrive assessed: 07/31/24 I am a: Patient What is your living situation today?: I have a steady place to live Within the past 12 months, did the food you bought not last and you didn't have the money to get more?: Never true Within the past 12 months, did you worry whether your food would run out before you got money to buy more?: Never true Do you have trouble paying for medicines?: I choose not to answer this question Do you have trouble getting transportation to medical appointments?: No Do you have trouble paying your heating and electricity bill?: No Do you have trouble taking care of your child, family member or friend?: No Do you have trouble with day-to-day activities such as bathing, preparing meals, shopping, managing finances, etc.?: No Are you currently unemployed and looking for a job?: No Are you interested in more education?: Yes Please select the resources that you would like help with: None Currently or been in a relationship where the following occur: No concerns reported THRIVE Score: 0 AUDIT C Alcohol Use Questionnaire (AUDIT-C) 1. How often do you have a drink containing alcohol?: Never 3. How often do you have six or more drinks on one occasion?: Never Total Score: 0 Score Reviewed/Action Taken: Yes RICARDO-7 AMB Questionnaire RICARDO-7 Date RICARDO - 7 assessed: 06/10/24 Source: Developed by Drs. Master Olson, Sherry Irwin, Chris Colón and colleagues, with an educational paula from [employer]. Review of Systems Const Denies headache(s) Eyes Denies loss of vision ENT Denies vertigo, Denies dizziness, Denies headache(s) and Denies sore throat Card Denies chest pain, Denies leg edema and Denies lightheadedness Resp Denies cough, Denies hemoptysis and Denies wheezing GI Denies abdominal pain, Denies melena, Reports constipation, Reports heartburn (Depending on what he eats), Denies diarrhea and Denies vomiting Denies dysuria, Denies urinary frequency and Denies urinary urgency Musc Reports back pain (Right rib area more towards the back), Denies arthralgias, Denies joint swelling, Denies numbness and Denies tingling Neuro Denies Abnormal speech present, Denies vertigo, Denies dizziness, Denies headache(s), Denies loss of vision, Denies numbness and Denies tingling Aller/Immun Denies wheezing Physical exam (Primary Care) Vital Signs: Last Vital Signs Pulse 108 H 07/31/24 10:32 BP 142/92 H 07/31/24 10:32 Pulse Ox 98 07/31/24 10:32 Oxygen Delivery Method Room Air 07/31/24 10:32 BMI result Body Mass Index 25.9 Tobacco/Smoking Status: Tobacco use Status Tobacco use date assessed 06/10/24 07/31/24 10:36 Patient Tobacco Use Status Never used Tobacco 07/31/24 10:36 Tobacco use type Cigarette 07/31/24 10:36 e-Cigarette/Vaping Use Never Used 07/31/24 10:36 PHQ-9: PHQ-9 Score PHQ-9: Total score 4 07/31/24 10:43 Depression Screening Interpretation: Positive Thrive Assessment: Date of Thrive Assessment Date Thrive assessed 07/31/24 07/31/24 10:36 Currently or been in a relationship where the following occur: No concerns reported Const General: healthy appearing, no acute distress, alert and awake Nutritional Appearance: well nourished Orientation/consciousness: oriented to person, oriented to place and oriented to time HENMT Ears: external ears normal General nose exam: Normal external nose present Eyes Conjunctivae: conjunctivae normal Sclerae: sclerae normal Pupils: Equal, round and reactive pupils present Neck Neck: Yes no lymphadenopathy Thyroid: Thyroid normal Carotids: no bruits Resp Effort & Inspection: normal respiratory effort and not tachypneic Auscultation: no crackles, no rales, no rhonchi and no wheezes Cardio Rate: regular rate Rhythm: regular rhythm Heart sounds: no murmurs and normal S1 and S2 GI Palpation (GI): Soft to palpation, nontender, no hepatomegaly and no splenomegaly Auscultation: normal bowel sounds General: Yes no CVA tenderness Back/Spine/Pelvis Back: no CVA tenderness Thoracic/Lumbar Spine: No thoracic spinal tenderness and No lumbar spinal tenderness Neuro General: oriented to person, oriented to place and oriented to time Cranial nerves: Yes Equal, round and reactive pupils present Speech: No Abnormal speech present Gait exam (Neuro): Normal gait present Motor exam (neuro): no tremor noted Extrem Right upper extremity: full ROM Left upper extremity: full ROM Right lower extremity: full ROM; no edema Left lower extremity: full ROM; no edema Psych Mental Status: mental status grossly normal Speech and movement: Normal speech and movement present Affect: normal affect Attitude: cooperative Thought process: Normal thought process present Results Reviewed Results Reviewed: Laboratory Tests 07/14/24 07/14/24 10:23 10:25 WBC 6.4 RBC 6.05 H Hgb 15.7 Hct 48.7 MCV 80.5 MCH 26.0 L MCHC 32.2 RDW 14.3 Plt Count 249 Sodium 137 Potassium 3.9 Chloride 104 Carbon Dioxide 24 Anion Gap 13 BUN 18 H Creatinine 0.94 Estimated GFR > 60 Fasting Glucose 96 Calcium 9.7 Total Bilirubin 0.6 AST 40 H ALT 59 H Alkaline Phosphatase 69 Total Protein 7.6 Albumin 4.4 Triglycerides 215 H Cholesterol 231 H LDL Cholesterol, Calc 147 H HDL Cholesterol 41 25-OH Vitamin D Total 19.2 L TSH 0.97 Urine Color Yellow Urine Appearance Clear Urine pH 6.0 Ur Specific [place] 1.020 Urine Protein Negative Urine Glucose (UA) Negative Urine Ketones Negative Urine Blood Negative Urine Nitrite Negative Ur Leukocyte Esterase Small (1+) H Urine RBC 0-2 Urine WBC 0-5 Ur Squamous Epith Cells 0-2 Urine Bacteria None Seen Hyaline Casts 0-2 Coding Level of Care Code Est Pt Level 4 (02556) Diagnoses Hypertension, unspecified type I10 Hypertension type: unspecified Heart burn R12 Constipation, unspecified constipation type K59.00 Constipation type: unspecified constipation type Fatty liver K76.0 Elevated liver enzymes R74.8 Mixed hypercholesterolemia and hypertriglyceridemia E78.2 Vitamin D deficiency E55.9 Time Spent (min) 41 Assessment & Plan Assessment & Plan (1) High blood pressure: Code(s): I10 - Essential (primary) hypertension Category: Medical Qualifiers: Hypertension type: unspecified Qualified Code(s): I10 - Essential ( primary) hypertension Plan: Blood pressure 142/92-increased since last visit and was started on amlodipine 5 mg Patient is does noncompliant with medication Reinforced low-salt diet and encouraged the patient to start the medication to decrease his chance of adverse events due to persistently high blood pressure He reports that sometimes he forgets and we will start taking the medication (2) Heart burn: Code(s): R12 - Heartburn Category: Medical Plan: Has been less since started on treatment Do not eat meals or drink carbonated beverages within 3 hr of bedtime Decrease the amount of fried, fatty, and spicy foods to decrease gastric acid production Raise the head of the bed using 4 to 6-inch blocks, especially if nocturnal symptoms are present Lose weight if indicated; avoid tight-fitting clothing, especially around the waist Avoid foods that relax the Lower esophageal sphincter (chocolate, peppermint, high-fat foods etc.,) Continue omeprazole 40 mg daily (3) Constipation: Code(s): K59.00 - Constipation, unspecified Category: Medical Qualifiers: Constipation type: unspecified constipation type Qualified Code(s): K59.00 - Constipation, unspecified Plan: Increase fiber in diet (fruits/vegetables 4-5 servings daily) Increase fluid intake and decrease caffeine/energy drinks (may cause mild dehydration) Encouraged regular exercise (e.g., biking, walking, running) (4) Fatty liver: Code(s): K76.0 - Fatty (change of) liver, not elsewhere classified Category: Medical Plan: Decreased high cholesterol foods, refrain from taking acetaminophen and continue to decrease alcohol intake (5) Elevated liver enzymes: Code(s): R74.8 - Abnormal levels of other serum enzymes Category: Medical Plan: Avoid Tylenol and alcohol. Continue decreasing cholesterol We will recheck CMP in 3 months (6) Mixed hypercholesterolemia and hypertriglyceridemia: Code(s): E78.2 - Mixed hyperlipidemia Category: Medical Plan: Encouraged to exercise for at least 30 minutes a day/5 days a week Healthy eating discussed. Encouraged to eat fruits/vegetables, protein-fish/b aked chicken, and to avoid salty/fried foods, sweets, caffeine and carbohydrates. Encouraged to increase water intake 6-8 glasses a day (7) Vitamin D deficiency: Code(s): E55.9 - Vitamin D deficiency, unspecified Category: Medical Plan: Corporate vitamin-D rich foods (vitamin D fortified milk, orange juice, and cereals, cod liver oil; swordfish, salmon, carmen, mackerel, tuna, trout, egg yolk and mushrooms). Safe and appropriate exposure to sunlight can also help the body produce vitamin-D. Start cholecalciferol 25 mcg daily Plan Patient to return in 3 months. Complete scheduled blood works a week before appointment Orders: Orders UA CC w/rflx Micro + Cult 3 Months E55.9 - Vitamin D deficiency, unspecified, E78.2 - Mixed hyperlipidemia, I10 - Essential (primary) hypertension, K76.0 - Fatty (change of) liver, not elsewhere classified, R12 - Heartburn, R74.8 - Abnormal levels of other serum enzymes Vitamin D 25-OH Total 3 Months E55.9 - Vitamin D deficiency, unspecified, E78.2 - Mixed hyperlipidemia, I10 - Essential (primary) hypertension, K76.0 - Fatty (change of) liver, not elsewhere classified, R12 - Heartburn, R74.8 - Abnormal levels of other serum enzymes Complete Blood Count Auto Diff 3 Months E55.9 - Vitamin D deficiency, unspecified, E78.2 - Mixed hyperlipidemia, I10 - Essential (primary) hypertension, K76.0 - Fatty (change of) liver, not elsewhere classified, R12 - Heartburn, R74.8 - Abnormal levels of other serum enzymes Comprehensive [place]. Panel Fast 3 Months E55.9 - Vitamin D deficiency, unspecified, E78.2 - Mixed hyperlipidemia, I10 - Essential (primary) hypert ension, K76.0 - Fatty (change of) liver, not elsewhere classified, R12 - Heartburn, R74.8 - Abnormal levels of other serum enzymes Lipid Panel 3 Months E55.9 - Vitamin D deficiency, unspecified, E78.2 - Mixed hyperlipidemia, I10 - Essential (primary) hypertension, K76.0 - Fatty (change of) liver, not elsewhere classified, R12 - Heartburn, R74.8 - Abnormal levels of other serum enzymes TSH reflex Free T4 3 Months E55.9 - Vitamin D deficiency, unspecified, E78.2 - Mixed hyperlipidemia, I10 - Essential (primary) hypertension, K76.0 - Fatty (ch krista of) liver, not elsewhere classified, R12 - Heartburn, R74.8 - Abnormal levels of other serum enzymes Glucose Fasting 3 Months E55.9 - Vitamin D deficiency, unspecified, E78.2 - Mixed hyperlipidemia, I10 - Essential (primary) hypertension, K76.0 - Fatty (change of) liver, not elsewhere classified, R12 - Heartburn, R74.8 - Abnormal levels of other serum enzymes Medications: New cholecalciferol (vitamin D3) 25 mcg PO DAILY 90 caps 2RF tizanidine 2 mg PO TID PRN 90 caps 1RF muscle spasticity
[2024-07-31 10:32] VITALS: BP 142/92; PULSE 108; O2SAT 98; BMI 25.9
--- OUTSIDE RECORDS SUMMARY | 2024-07-31 10:55 | XMS_ITS | Clinical Summary ---
Author Organization [facility] Address [address] [place] [address] Phone Care Team Providers Care Ed Teacher Name Role Phone Physician, No Pcp Primary [...] age to complete this topic Care Teams Ed Teacher Relationship Specialty Start Date End Date Physician, No Pcp PCP - General 01/17/24
== END 2024-07-31 11:17 | disposition home or self-care (01) ==
LOC: HO.HMCH 10:30
DX: I10 Essential (primary) hypertension (principal); R12 Heartburn; K59.00 Constipation, unspecified; K76.0 Fatty (change of) liver, not elsewhere classified; R74.8 Abnormal levels of other serum enzymes; E78.2 Mixed hyperlipidemia; E55.9 Vitamin D deficiency, unspecified

== ENCOUNTER → 2024-07-31 10:29 | Outpatient (BNVA) | payer OTHER, SELFPAY | DX: I10 Essential (primary) hypertension (principal); R12 Heartburn; K59.00 Constipation, unspecified; K76.0 Fatty (change of) liver, not elsewhere classified; R74.8 Abnormal levels of other serum enzymes; E78.2 Mixed hyperlipidemia; E55.9 Vitamin D deficiency, unspecified; Z79.899 Other long term (current) drug therapy | CPT/HCPCS: 99212 ==